=== PATIENT | male | born 1990 | race Two or more races ===

== ENCOUNTER 2018-10-18 08:28 | Emergency (ER) | payer MEDICAID ==
[~2018-10-18] VITALS: Ht 177.8 cm; Wt 74.8 kg
[2018-10-18 08:27] VITALS: BP 139/83
[~2018-10-18 08:28] MED LIST: UNOBMED
--- NOTE | 2018-10-18 08:44 | Emergency Room Report ---
History of Present Illness General Chief Complaint: Seizure Source: Patient, EMS Present Illness HPI Patient presents with reports of possible seizure activity Patient initially upon arrival appears to have some mild confusion Family reports that they heard a sound from the patient's room and the patient was found in the shower Having a tonic-clonic activity Patient himself reports that he does not have a history of seizures [facility] based patient had reported history of seizure activity And the paramedics report that there is unclear history of seizure disorder patient however reports that he does not take any medications for it He does report increased alcohol intake on a regular basis Currently denies any headache denies any chest pain denies any focal weakness Allergies: Coded Allergies: No Known Allergies (Unverified , 10/18/18) Patient History Past Medical History: see triage record Pertinent Family History: none Reviewed Nursing Documentation: PMH: Agreed; PSxH: Agreed Nursing Documentation-PMH Hx Seizures: Yes Review of Systems All Other Systems: negative except mentioned in HPI Physical Exam Vital Signs Date Time Temp Pulse Resp B/P (MAP) Pulse Ox O2 Delivery O2 Flow Rate FiO2 10/18/18 08:13 98.2 134 10/18/18 08:13 16 139/83 98 Room Air Sp02 EP Interpretation: reviewed, normal General Appearance: well appearing, no apparent distress Head: normocephalic, atraumatic Eyes: bilateral eye PERRL, bilateral eye EOMI ENT: hearing grossly normal, normal pharynx, TMs + canals normal, uvula midline Neck: full range of motion, supple, no meningismus, no bony tend Respiratory: lungs clear, normal breath sounds, no rhonchi, no respiratory distress, no retraction, no accessory muscle use Cardiovascular #1: normal peripheral pulses, no edema, no gallop, no JVD, no murmur, tachycardia Gastrointestinal: normal bowel sounds, non tender, soft, no mass, no organomegaly, non-distended, no guarding, no hernia, no pulsatile mass, no rebound Genitourinary: no CVA tenderness Musculoskeletal: normal inspection Neurologic: responsive, 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, motor strength/tone normal, sensory intact, other - With GCS of 14 and mild confusion Psychiatric: mood/affect normal Skin: palpation normal, other - Abrasions over both hands Lymphatic: normal inspection, no adenopathy Procedures Critical Care Time Critical Care Time 50 minutes for multiple re-evaluations critical presentation, concern for decompensation and cardiopulmonary arrest not including any procedural time Medical Decision Making Diagnostic Impression: Primary Impression: Alcohol withdrawal Additional Impressions: Alcohol withdrawal delirium Alcohol withdrawal seizure ER Course Upon arrival of the patient's parents they also report significant potential Benadryl intake They brought a bottle of 50 mg Benadryl Reports that there is only 8 left from a bottle of 30 Patient himself cannot provide specific input regarding ingestion or amount During his stay the patient has become and remained fairly tachycardic now showing signs of tremulousness Showing concerning findings of possible alcohol withdrawal Patient is initiated on further hydration and benzodiazepines contact is made with [facility] Patient is critical however has the ability to transfer to [facility] for continued care under primary medical insurance Labs Test 10/18/18 08:40 10/18/18 09:20 White Blood Count 6.4 K/UL (4.8-10.8) Red Blood Count 5.24 M/UL (4.70-6.10) Hemoglobin 17.7 G/DL (14.2-18.0) Hematocrit 52.2 % (42.0-52.0) Mean Corpuscular Volume 100 FL (80-99) Mean Corpuscular Hemoglobin 33.7 PG (27.0-31.0) Mean Corpuscular Hemoglobin Concent 33.8 G/DL (32.0-36.0) Red Cell Distribution Width 12.2 % (11.6-14.8) Platelet Count 160 K/UL (150-450) Mean Platelet Volume 7.7 FL (6.5-10.1) Neutrophils (%) (Auto) 80.2 % (45.0-75.0) Lymphocytes (%) (Auto) 10.9 % (20.0-45.0) Monocytes (%) (Auto) 7.6 % (1.0-10.0) Eosinophils (%) (Auto) 0.6 % (0.0-3.0) Basophils (%) (Auto) 0.8 % (0.0-2.0) Sodium Level 138 MMOL/L (136-145) Potassium Level 3.9 MMOL/L (3.5-5.1) Chloride Level 102 MMOL/L (98-107) Carbon Dioxide Level 23 MMOL/L (21-32) Anion Gap 13 mmol/L (5-15) Blood Urea Nitrogen 9 mg/dL (7-18) Creatinine 1.1 MG/DL (0.55-1.30) Estimat Glomerular Filtration Rate > 60 mL/min (>60) Glucose Level 71 MG/DL (74-106) Calcium Level 9.3 MG/DL (8.5-10.1) Total Bilirubin 0.3 MG/DL (0.2-1.0) Aspartate Amino Transf (AST/SGOT) 30 U/L (15-37) Alanine Aminotransferase (ALT/SGPT) 41 U/L (12-78) Alkaline Phosphatase 72 U/L (46-116) Total Protein 8.5 G/DL (6.4-8.2) Albumin 4.4 G/DL (3.4-5.0) Globulin 4.1 g/dL Albumin/Globulin Ratio 1.1 (1.0-2.7) Lipase 62 U/L (73-393) Serum Alcohol 45 mg/dL Urine Opiates Screen Negative (NEGATIVE) Urine Barbiturates Screen Negative (NEGATIVE) Phencyclidine (PCP) Screen Negative (NEGATIVE) Urine Amphetamines Screen Negative (NEGATIVE) Urine Benzodiazepines Screen Negative (NEGATIVE) Urine Cocaine Screen Negative (NEGATIVE) Urine Marijuana (THC) Screen Negative (NEGATIVE) Rhythm Strip Diag. Results EP Interpretation: yes Rate: 120 Rhythm: no PVC's, no ectopy, other - Sinus tach Last Vital Signs Date Time Temp Pulse Resp B/P (MAP) Pulse Ox O2 Delivery O2 Flow Rate FiO2 10/18/18 08:28 129 16 Room Air 10/18/18 08:27 97.1 139/83 98 Status: improved Disposition: XFER SHT-TRM HOSP Condition: Critical MitchellkassiJaydon NESS Oct 18, 2018 08:44
[2018-10-18 09:14] LABS: ANION GAP 13 mmol/L (5-15); BLOOD UREA NITROGEN 9 mg/dL (7-18); CALCIUM 9.3 MG/DL (8.5-10.1); CARBON DIOXIDE 23 MMOL/L (21-32); CHLORIDE 102 MMOL/L (98-107); CREATININE 1.1 MG/DL (0.55-1.30); POTASSIUM 3.9 MMOL/L (3.5-5.1); SODIUM 138 MMOL/L (136-145)
[2018-10-18 09:18] LABS: ALANINE AMINOTRANSFERASE 41 U/L (12-78); ALBUMIN 4.4 G/DL (3.4-5.0); ALBUMIN/GLOBULIN RATIO 1.1 (1.0-2.7); ALKALINE PHOSPHATASE 72 U/L (46-116); ASPARTATE AMINO TRANSFERASE 30 U/L (15-37); BILIRUBIN,TOTAL 0.3 MG/DL (0.2-1.0)
[2018-10-18 09:29] LABS: BASOPHILS % (AUTO) 0.8 % (0.0-2.0); EOSINOPHILS % (AUTO) 0.6 % (0.0-3.0); HEMATOCRIT 52.2 % (42.0-52.0); HEMOGLOBIN 17.7 G/DL (14.2-18.0); LYMPHOCYTES % (AUTO) 10.9 % (20.0-45.0); MEAN CORPUSCULAR VOLUME 100 FL (80-99); MONOCYTES % (AUTO) 7.6 % (1.0-10.0); NEUTROPHILS % (AUTO) 80.2 % (45.0-75.0); PLATELET COUNT 160 K/UL (150-450); RED BLOOD COUNT 5.24 M/UL (4.70-6.10); RED CELL DISTRIBUTION WIDTH 12.2 % (11.6-14.8); WHITE BLOOD COUNT 6.4 K/UL (4.8-10.8)
--- NOTE | 2018-10-18 09:33 | Diagnostic Imaging Report ---
EXAM: CT Head Without Intravenous Contrast CLINICAL HISTORY: TRAUMA TECHNIQUE: Axial computed tomography images of the head/brain without intravenous contrast. CTDI is 70 mGy and DLP is 1354 mGy-cm. One or more of the following dose reduction techniques were used: automated exposure control, adjustment of the mA and/or kV according to patient size, use of iterative reconstruction technique. COMPARISON: No relevant prior studies available. FINDINGS: Brain: Unremarkable. No evidence of acute intracranial hemorrhage. No significant white matter disease. No edema. No mass effect or midline shift. Ventricles: Unremarkable. No ventriculomegaly. Bones/joints: Unremarkable. No depressed skull fracture. Soft tissues: Unremarkable. Sinuses: Unremarkable as visualized. No acute sinusitis. Mastoid air cells: Unremarkable as visualized. No mastoid effusion. IMPRESSION: No acute intracranial findings.
[2018-10-18] MEDS ORDERED: LORazepam Inj 2mg/ml 1ml IV ONE ×3 (10:00→12:45)
[2018-10-18] MEDS ORDERED: Thiamine 100mg tab ORAL ONE (11:45)
[2018-10-18 12:40] VITALS: BP 121/91
[2018-10-18 15:13] VITALS: BP 121/91
== END 2018-10-18 15:14 | disposition short-term general hospital (02) ==
LOC: EDBD 08:28 → EMR 08:35
DX: F10.231 Alcohol dependence with withdrawal delirium (principal); R56.9 Unspecified convulsions
CPT/HCPCS: 36415; 70450; 80053; 80307; 80329; 83690; 85025; 96361; 96374; 96375; 96376; 99291